=== PATIENT | male | born 1985 | race Caucasian/White ===

== ENCOUNTER 2018-11-20 06:10 | Emergency (ER) | payer OTHER, SELFPAY ==
[2018-11-20 06:11] VITALS: BP 135/81; PULSE 100; RESP 14; TEMP 37.7; O2SAT 96; BMI 37.2
[2018-11-20 06:16] VITALS: BP 135/81; PULSE 99; RESP 14; O2SAT 95
--- NOTE | 2018-11-20 06:23 | CT_ITS ---
STUDY: CT ABDOMEN AND PELVIS WITH CONTRAST REASON FOR EXAM: Male, 33 years old. Left lower quadrant pain for 2 days. RADIATION DOSAGE (If Supplied By Facility): CTDIvol = ( 14.94 ) mGy, DLP = ( 1289.39 ) mGycm TECHNIQUE: Transaxial images were obtained from the dome of the diaphragm to the symphysis pubis without oral contrast. 100 ml of Isovue 300 contrast was administered. Sagittal and coronal images were reconstructed. Individualized dose optimization techniques were used for this CT. COMPARISON: None. FINDINGS: There is mild atelectasis in the visualized lung bases. The visualized portions of the heart are within normal limits. There is decreased attenuation of the liver consistent with steatosis. Normal gallbladder and extrahepatic biliary system. Normal spleen. Normal pancreas. Normal bilateral adrenal glands. Normal right kidney. Normal left kidney. Normal visualized stomach. Normal small intestine. There are multiple colonic diverticula consistent with diverticulosis. There is mural thickening of the proximal sigmoid colon with adjacent fat infiltration, consistent with acute diverticulitis. There is no visualized abscess or free intraperitoneal air. The appendix is visualized on axial images 71-78 and it appears normal. Normal abdominal aorta. Normal inferior vena cava. Normal retroperitoneum. There is a small amount of ascites fluid in the left paracolic gutter as well as in the posterior pelvis. Normal urinary bladder. There is a small umbilical hernia containing fat, but no bowel. There are multilevel degenerative changes of the visualized lumbar spine. CT/Abdomen/Pelvis W IV Cont ONLY IMPRESSION: Acute diverticulitis of the proximal sigmoid colon. No associated abscess or free intraperitoneal air. Small amount of ascites fluid in the left paracolic gutter and posterior pelvis. Fatty liver. Electronically Signed: Owen Donohue MD at 7:45 EST , Service support ,
[2018-11-20] MEDS: 0.9% Normal Saline 1,000 ML 1000 ML IV (06:30)
[2018-11-20] MEDS: Ketorolac 30 MG/ML Syringe IV (06:30)
[2018-11-20] MEDS: Ondansetron 4 MG/2 ML Vial IV (06:30)
--- NOTE | 2018-11-20 06:30 | ED.DCSUM_ITS ---
- ER Visit Summary Date of Service: 11/20/18 Chief Complaint: [Abdominal pain] History of Present Illness: The patient is a 33 M [that presents with persistent left lower quadrant pain that began around noon yesterday. He describes aching left lower quadrant pain without significant exacerbating or relieving factors. He does describe decreased appetite. No nausea, vomiting, diarrhea, or urinary symptoms. He denies any fevers or recent illness. He works as a recovery collector. He denies any fall or trauma. He appears well and nontoxic. He has no other complaints.] Physical Examination: [General: The patient appears well and in no apparent distress. Patient is resting comfortably on cart. Skin: Warm, dry, no pallor noted. No rash. Head: Normocephalic, atraumatic Neck: Supple, nontender. ENT: Moist mucus membranes, pharynx within normal limits. Cardiovascular: Regular Rate and Rhythm, no gallops or rubs Respiratory: Patient is in no distress, no accessory muscle use, lungs are clear to auscultation, no wheezing, rales or rhonchi Musculoskeletal: normal ROM, no deformity, no tenderness, no swelling. 2+ radial and DP pulses symmetric. GI: LLQ tenderness to palpation, no masses appreciated. No rebound, guarding, or rigidity noted. Neurological: A&O, normal strength and sensation. GCS 15. Psychiatric: Cooperative] Test Results: [] Emergency Department Course and Treatment: [Patient was given IV fluids, Zofran, Toradol. He did drive here. Blood work and CT imaging were ordered. Mild leukocytosis. Mild elevation of bilirubin. CT pending at this time. Patient signed out to oncoming ED provider. ] Treatment Plan: [see above] Disposition: [] Impression: [LLQ Abdominal Pain] This note was generated with [employer] dictation software. It may contain incorrect words, spelling, and punctuation that were not noted in review of the chart prior to signing ED Disposition - Plan for ED Patient: Disposition: Home or Assisted Living Chief Complaint: Abd Pain Instructions: ED Abdominal Pain Unkn Cause Male Referrals: Leonidas Castellano DO [STAFF PHYSICIAN] -
[2018-11-20 06:49] LABS: Absolute Lymphocyte Count 1.43 X10^3/ul (0.83-4.51); Absolute Neutrophil Count 10.3 X10^3/uL (2.0-7.7); Basophil# 0.02 X10^3/uL; Basophil% 0.2 % (0-1); Eosinophil# 0.02 X10^3/uL; Eosinophils% 0.2 % (0-5); Hematocrit 43.4 % (40-54); Hemoglobin 14.6 g/dl (13.0-16.5); Lymphocyte # 1.43 X10^3/ul (4.0); Lymphocyte % 10.8 % (19-41); Mean Corp Hgb Conc 33.6 g/gl (32-36); Mean Corpuscular Hgb 31.4 pg (27.0-32.0); Mean Corpuscular Volume 93.3 fL (80-94); Mean Platelet Vol. 10.1 fl (6.2-12.0); Monocyte# 1.41 X10^3/uL; Monocyte% 10.7 % (0-10); Neutrophil # 10.29 X10^3/uL (2.7-7.7); Neutrophil % 77.9 % (47-70); Platelet Count 200 K/mm3 (150-450); RBC Distribution Width CV 12.5 % (11.6-14.6); RBC Distribution Width SD 41.9 fl (35.1-43.9); Red Blood Count 4.65 M/mm3 (4.6-6.2); White Blood Count 13.2 K/mm3 (4.4-11.0)
[2018-11-20 06:52] LABS: POSITIVE COUNT NO; POSITIVE DIFFERENTIAL NO; POSITIVE MORPHOLOGY NO
[2018-11-20 07:03] LABS: AST(SGOT) 14 U/L (15-37); Alanine Aminotransfer ALT/SGPT 39 U/L (16-61); Albumin, Serum 3.6 g/dL (3.2-5.0); Alkaline Phosphatase 47 U/L (45-117); Anion Gap 9 (5-15); BUN 14 mg/dL (7-18); BUN/Creat Ratio 11.5 RATIO (10-20); Calcium,Total 8.3 mg/dL (8.5-10.1); Chloride 105 mmol/L (98-107); Creatinine, Serum 1.22 mg/dL (0.70-1.30); EST Glomerular Filtration Rate 72 mL/min (>60); Est Glom Filt Rate - Afr Amer 88 mL/min (>60); Estimated Creatinine Clearance 83.32 ml/min; Globulin 3.5 g/dL (2.2-4.2); Glucose 121 mg/dL (74-106); Lipase 170 U/L (73-393); Potassium 3.8 mmol/L (3.5-5.1); Protein, Total 7.1 g/dL (6.4-8.2); Sodium Level 139 mmol/L (136-145)
[2018-11-20 08:06] LABS: Bacteria 0 SEEN /hpf (None Seen); Mucous, Urine 0 SEEN /hpf (<or=2+); Red Blood Cells-Urine 0 SEEN /hpf (0-5); Squamous Epithelial Cells - UA 0 SEEN /hpf (0-5); White Blood Cells 0 SEEN /hpf (0-5)
[2018-11-20 08:08] LABS: Color, Urine Yellow (Yellow); Glucose, Dipstick Normal (Normal); Ketone-Dipstick Negative (Negative); Leukocyte Esterase-Dipstick Negative /ul (Negative); Nitrite-Dipstick Negative (Negative); Occult Blood-Urine Negative /ul (Negative); Protein-Dipstick Negative (Negative); Specific Gravity, Urine 1.005 (1.002-1.030); Urine Bilirubin Dipstick Negative (Negative); Urine Clarity Sl. Cloudy (Clear); Urine Urobilinogen 1 mg/dl (Normal)
--- NOTE | 2018-11-20 08:36 | ED.DEP ---
ED Disposition - Plan for ED Patient: Chief Complaint: Abd Pain Instructions: ED Diverticulitis Prescriptions: Metronidazole [Flagyl] 500 mg PO Q8H #30 tab Ciprofloxacin [Cipro] 500 mg PO BID #20 tab Referrals: Leonidas Castellano DO [STAFF PHYSICIAN] - 1 Week if not improving Additional Instructions: Tylenol and/or Motrin for pain. Finished both antibiotics of Cipro 1 pill twice a day for 10 days and the Flagyl 1 pill 3 times a day for 10 days. Follow-up with your primary care physician. Return if worse.
[2018-11-20] MEDS: Ciprofloxacin 500 MG Tablet PO (09:59)
[2018-11-20] MEDS: metroNIDAZOLE 500 MG Tablet PO (09:59)
[2018-11-20 10:01] VITALS: BP 142/60; PULSE 75; RESP 20; O2SAT 97
== END 2018-11-20 10:05 | disposition home or self-care (01) ==
PROVIDERS: Emergency Provider Emergency Medicine
DX: K57.32 Diverticulitis of large intestine without perforation or abscess without bleeding (principal)
CPT/HCPCS: 74177; 80053; 81001; 83690; 85025; 96361; 96374; 96375; 99284; J7030; Q9967; J2405